=== PATIENT | female | born 1970 | race Caucasian/White ===

== ENCOUNTER 2017-04-21 11:07 | Emergency (ER) | payer MEDICAID ==
[~2017-04-21] VITALS: Ht 165.1 cm; Wt 62.0 kg
[2017-04-21 12:41] LABS: BASOPHILS % 0.5 % (0.0-2.0); EOSINOPHILS % 0.8 % (0.0-5.0); HEMATOCRIT. 40.3 % (36.0-48.0); HEMOGLOBIN. 13.6 g/dL (12.0-16.0); LYMPHOCYTES % 19.7 % (20.0-50.0); MEAN CORPUSCULAR HEMOGLOBIN 31.8 pg (28.0-32.0); MEAN CORPUSCULAR VOLUME 94.1 fL (81.0-99.0); MEAN PLATELET VOLUME 8.1 fl (7.4-10.4); MONOCYTES % 6.3 % (2.0-8.0); NEUTROPHILS % 72.7 % (40.0-76.0); PLATELET 316 x1000/uL (130-400); RED BLOOD CELL COUNT 4.28 mill/uL (4.2-5.4); RED CELL DISTRIBUTION WIDTH 13.3 % (11.6-14.6)
[2017-04-21 12:55] LABS: CARBON DIOXIDE 29 mEq/L (21-32); CHLORIDE 101 mEq/L (98-107)
[2017-04-21 13:00] VITALS: BP 120/81
[2017-04-21 13:12] LABS: CLARITY URINE CLEAR (CLEAR); COLOR URINE YELLOW (YELLOW); GLUCOSE URINE NEGATIVE (NEGATIVE); KETONES URINE NEGATIVE (NEGATIVE); LEUKOCYTE ESTERASE URINE NEGATIVE (NEGATIVE); NITRITE URINE NEGATIVE (NEGATIVE); OCCULT BLOOD URINE NEGATIVE (NEGATIVE); PROTEIN URINE NEGATIVE (NEGATIVE); SPECIFIC GRAVITY URINE 1.007 (1.005-1.030); UROBILINOGEN URINE 0.2 E.U./dL (0.2-1.0)
[2017-04-21 13:30] LABS: *AMPHETAMINES SCREEN URINE NEGATIVE (NEGATIVE); *BARBITURATES SCREEN URINE NEGATIVE (NEGATIVE); *BENZODIAZEPINES SCREEN URINE NEGATIVE (NEGATIVE); *COCAINE SCREEN URINE NEGATIVE (NEGATIVE); CANNABINOID URINE SCREEN NEGATIVE (NEGATIVE); METHADONE URINE SCREEN NEGATIVE (NEGATIVE); OPIATES URINE SCREEN NEGATIVE (NEGATIVE); PHENCYCLIDINE URINE SCREEN NEGATIVE (NEGATIVE)
[2017-04-21 13:30] LABS: HEPATITIS B SURFACE ANTIGEN NEGATIVE
[2017-04-21 13:58] LABS: HEPATITIS B CORE AB IGM NEGATIVE
[2017-04-21 13:59] LABS: HEPATITIS A AB IGM NEGATIVE (NEGATIVE)
== END 2017-04-21 14:08 | disposition left against medical advice (07) ==
LOC: ER 12:57
DX: T47.5X Poisoning by, adverse effect of and underdosing of digestants (principal); T76.21XA Adult sexual abuse, suspected, initial encounter; S05.8X2A Other injuries of left eye and orbit, initial encounter; S05.8X1A Other injuries of right eye and orbit, initial encounter; Z20.2 Contact with and (suspected) exposure to infections with a predominantly sexual mode of transmission; M79.7 Fibromyalgia; R00.0 Tachycardia, unspecified; Y93.89 Activity, other specified; Y92.89 Other specified places as the place of occurrence of the external cause
CPT/HCPCS: 36415; 80053; 80305; 81003; 81025; 83036; 85025; 85651; 86705; 86709; 86803; 87186; 87340; 93005; 99285